=== PATIENT | female | born 1955 | race Caucasian/White ===

== ENCOUNTER 2024-04-22 06:32 | Day surgery (SDC) | payer BC ==
[~2024-04-22] VITALS: Ht 157.5 cm; Wt 52.6 kg
[2024-04-22] MEDS ORDERED: fentaNYL CITRATE/PF 100 MCG/2 ML AMP ONE (09:16)
[2024-04-22] MEDS ORDERED: MIDAZOLAM HCL 2 MG/2 ML VIAL (VERSED) ONE (09:17)
[2024-04-22] MEDS ORDERED: ACETAMINOPHEN I.V. 1000 MG 100 ML IV ONE (09:17)
[2024-04-22] MEDS ORDERED: SUCCINYLCHOLINE CHLORIDE 20 MG/ML(QUELICIN) ONE (09:23)
[2024-04-22] MEDS ORDERED: DEXAMETHASONE SOD PHOSPHATE 4 MG/ML VIAL ONE (09:23)
[2024-04-22] MEDS ORDERED: ePHEDrine sulfate 50 MG/ML VIAL ONE (09:23)
[2024-04-22] MEDS ORDERED: METOCLOPRAMIDE HCL 10 MG/2 ML VIAL ONE (09:23)
[2024-04-22] MEDS ORDERED: ONDANSETRON HCL 4 MG/2 ML VIAL ONE (09:23)
[2024-04-22] MEDS ORDERED: [UNRECOGNIZED DRUG - OTHER] IJ ONE (09:23)
[2024-04-22] MEDS ORDERED: PROPOFOL 200MG/ 20ML VIAL (DIPRIVAN) IV ONE (09:23)
[2024-04-22] MEDS ORDERED: ROCURONIUM BROMIDE 10 MG/ML (ZEMURON) ONE (09:23)
[2024-04-22] MEDS ORDERED: LIDOCAINE HCL IJ ONE (09:23)
[2024-04-22] MEDS ORDERED: LR 1,000 ML IV.SOLN IV ONE (09:23)
[2024-04-22] MEDS ORDERED: SEVOFLURANE 15 MIN GAS INH ONE (09:23)
[2024-04-22] MEDS ORDERED: GLYCOPYRROLATE 0.2 MG/ML VIAL ONE (09:23)
[2024-04-22] MEDS ORDERED: NS IRRIG SOLN 1000 ML IR ONE (09:23)
[2024-04-22] MEDS ORDERED: HYDROmorphone 1 MG/ML INJ. CARTRIDGE IVP PRN (10:00)
[2024-04-22] MEDS ORDERED: LR 1,000 ML IV ONE (10:00)
[2024-04-22] MEDS ORDERED: fentaNYL CITRATE/PF 100 MCG/2 ML AMP IVP PRN ×3 (10:00→14:15)
[2024-04-22] MEDS ORDERED: ONDANSETRON HCL 4 MG/2 ML VIAL IVP PRN ×2 (10:00→11:45)
[2024-04-22] MEDS ORDERED: ONDANSETRON 4 MG ODT TAB PO PRN (11:45)
[2024-04-22] MEDS ORDERED: ACETAMINOPHEN 500 MG TABLET PO PRN (11:45)
[2024-04-22] MEDS ORDERED: NALOXONE HCL 0.4 MG/ML AMP (NARCAN) IVP PRN (11:45)
[2024-04-22] MEDS ORDERED: ACETAMINOPHEN/CODEINE 300 MG-30 MG TABLET PO PRN (11:45)
[2024-04-22 12:30] VITALS: O2SAT 99
[2024-04-22] MEDS ORDERED: HYDROmorphone 1 MG/ML INJ. CARTRIDGE ONE (14:21)
[2024-04-22] MEDS: HYDROmorphone 1 MG/ML INJ. CARTRIDGE IVP PRN (14:24)
[2024-04-22 15:37] VITALS: BP_SYST 130; PULSE 82; RESP 18
== END 2024-04-22 15:05 | disposition home or self-care (01) ==
LOC: SDS 06:32 → SMU 06:33 → EDBD 08:00 → SDS 15:05
PROVIDERS: ATTEND Otolaryngology
DX: E04.1 Nontoxic single thyroid nodule (principal); D34 Benign neoplasm of thyroid gland; Z90.49 Acquired absence of other specified parts of digestive tract; Z79.899 Other long term (current) drug therapy
CPT/HCPCS: 87081; 60210; 88305; 88341; 88342; J1100; J3490; J2765; J2250; J2405; J2704; J0330; J3010; J1171; J7120; J0131